=== PATIENT | male | born 1970 | race African-American/Black ===

== ENCOUNTER 2020-09-05 14:34 | Emergency (ER) | payer OTHER, SELFPAY ==
[2020-09-05] VITALS (25 sets, daily range): BP systolic 124–152; BP diastolic 79–102; PULSE 48–73; RESP 9–20; TEMP 36.4; O2SAT 96–100
--- NOTE | 2020-09-05 14:30 | RT.EKG_ITS ---
APPROVED REPORT Exam: Resting ECG Patient Location: E HR:54 bpm ECG Measurements Heart Rate 54 AXIS AR 169 P 66 QRSd 104 QRS 37 QT 410 T 31 QTc 389 Conclusion Sinus bradycardia...rate< 60 no STEMI non-diagnostic EKG I have reviewed and interpreted ECG and agree with software generated interpretation.
--- NOTE | 2020-09-05 15:00 | DI.CT_ITS ---
EXAM: CT BRAIN NECK CTA CLINICAL HISTORY: Dizziness, vision changes. TECHNIQUE: Imaging Protocol: Axial CT angiography was performed with multi-slice acquisition and mu lti-planar and/or 3D reconstructions. CONTRAST MATERIAL: Intravenous: Omnipaque 350 Contrast volume:85 mL COMPARISON: No exams were available for comparison FINDINGS: CT Head W/O and W: Ventricles and Extra axial spaces: Normal in size and morphology for the patient's age. Hemorrhage: None. Cerebral parenchyma: Normal. Midline shift: None. Brainstem/Cerebellum: Normal. Calvarium: Normal. Visualized Paranasal sinuses/Mastoids: Clear. Soft Tissues: There is a 1.5 cm partially fatty lesion in the subcutaneous tissues of the right foreh ead. There is a 0.6 cm nodule within of soft tissue density. Enhancement: Unremarkable. CTA Neck W: Common Carotid: Right: No dissection, occlusion or significant stenosis. Left: No dissection, occlusion or significant stenosis. External Carotid: Right: No occlusion or significant stenosis. Left: No occlusion or significant stenosis. Internal Carotid: Right: No dissection, occlusion or significant stenosis. Left: No dissection, occlusion or significant stenosis. Mild calcific plaque at the origin. Vertebral Artery: Right: No dissection, occlusion or significant stenosis. Left: No dissection, occlusion or significant stenosis. Lung Apices: Normal. Bones: Moderate degenerative changes are seen in the cervical spine. Posterior longitudinal ligament calcification is seen at multiple levels. There is moderate central spinal canal stenosis noted at C4-C5, C6-C7 and C7-T1. Soft Tissues: Right thyroid gland is enlarged and there appears to be mass measuring approximately 3 cm. CTA Brain W: Internal Carotid Arteries: Petrous: Normal. Cavernous: Mild calcific plaque bilaterally. No significant stenosis, occlusion or aneurysm. Cerebral: Normal. Anterior Cerebral Arteries: Right: No aneurysm, occlusion or significant stenosis. Left: No aneurysm, occlusion or significant stenosis. Middle Cerebral Arteries: Right: No aneurysm, occlusion or significant stenosis. Left: No aneurysm, occlusion or significant stenosis. Posterior cerebral Arteries: Right: No aneurysm, occlusion or significant stenosis. The right posterior cerebral artery arises fr om the posterior communicating artery. Left: No aneurysm, occlusion or significant stenosis. The left posterior cerebral artery arises from the posterior communicating artery. Vertebral Arteries: Right: No aneurysm, occlusion or significant stenosis. Left: No aneurysm, occlusion or significant stenosis. Basilar Artery: No aneurysm, occlusion or significant stenosis. IMPRESSION: 1. No evidence of significant stenosis or occlusion on the CT angiography of the head and neck. 2. No acute intracranial process. 3. 1.5 cm fat density lesion in the subcutaneous tissues of the right forehead. There is a soft tiss ue component within it. May represent a lesion such as a lipoma. Liposarcoma cannot be excluded. P lease correlate clinically. 4. There is an enlarged right lobe of the thyroid gland with a question of a 3 cm thyroid mass. None mergent thyroid ultrasound is recommended for further evaluation. RADIATION DOSE DELIVERED: 2,337.71mGy.cm Total DLP 2,337.71mGy.cm Total DLP 2,337.71mGy.cm Total DLP DATA REPOSITORY: All CT scans at this facility are submitted to the National Radiology Data Registry (NRDR) Dose Index Registry (DIR) with the [employer] (ACR). RADIATION OPTIMIZATION: All CT scans at this facility use at least one of these dose optimization te chniques: automated exposure control; mA and/or kV adjustment per patient size (includes targeted exa ms where dose is matched to clinical indication); or iterative reconstruction.
--- NOTE | 2020-09-05 15:09 | ED.GENADUL_ITS ---
Discharge Plan Disposition Patient Disposition: HOME Condition: Good Discharge Details Clinical Impression: Double vision, Headache Primary Care Provider: Unknown,Unknown ED Provider: Isa Coronel Home Meds and New Rx's Prescriptions: Continued multivitamin Tablet 1 tab PO DAILY RF: 0 amlodipine 5 mg Tablet 5 mg PO DAILY RF: 0 Discharge Instructions Instructions: General Headache (ED) Additional Instructions: Please encourage water intake. Please try to prevent eyestrain from your computer. With the visual changes you have experienced, I would like for you top follow-up with [facility] to have your eyes evaluated and discussed upgrading your current prescription. Please also discussed glasses that may help prevent eye fatigue from prolonged time for further computer. With concerned about your sudden onset of headaches, weakness and double vision and feel that evaluation with neurology would be appropriate. Care management will be in contact with you regarding follow-up. I have also asked for evaluation with primary care in the next week. If you develop persistent symptoms, fever, vomiting or other new/worsening symptoms please seek care urgently once again. Medical Decision Making Patient is a pleasant 50-year-old male presenting today with chief complaint of headache and visual changes. He reports that he has had to short, now resolved, episodes of headache and visual changes. He states that his first episode was approximately 2.5 weeks ago. He reports during both episodes he was working on his computer. He describes a sudden onset of headache with diplopia. Describes a vertical diplopia. States that when he closes 1 eye the issue resolves. He states that he has had a history of ocular migraine that typically he gets an aura which she has not had with the. States that the headache lasted 4 to 5 minutes and then quickly self resolved. States he has had some nausea when he has had symptoms but no vomiting. No fevers or chills. No recent travel. Denies any recent change in his corrective lenses. Patient does wear corrective lenses and states it is been several years since he stopped up child. States that he can also get some pain on the posterior right side of his head that feels warm. No pain in his neck. No rash. No shortness of breath. No chest pain. Last episode was at 1 PM today On exam, patient is resting comfortably. I see no evidence to suggest trauma. He is neurologically intact. Normal cardiac and respiratory exam. As the patient diplopia resolves with covering 1 eye, I am concerned for potential central lesion I feel that imaging would be appropriate. I did discuss this plan with the patient is in agreement. Labs reviewed. Patient's white count slightly low at 4.14, CBC otherwise without abnormality. CMP without significant abnormality. Troponin less than 0.05. TSH within normal limits. ANTERIOR CIRCULATION: Right internal carotid artery: Unremarkable. Intracranial segment is patent with no significant stenosis. No aneurysm. Right middle cerebral artery: Unremarkable. No occlusion or significant stenosis. No aneurysm. Right anterior cerebral artery: Unremarkable. No occlusion or significant stenosis. No aneurysm. Left internal carotid artery: Unremarkable. Intracranial segment is patent with no significant stenosis. No aneurysm. Left middle cerebral artery: Unremarkable. No occlusion or significant stenosis. No aneurysm. Left anterior cerebral artery: Unremarkable. No occlusion or significant stenosis. No aneurysm. POSTERIOR CIRCULATION: Right vertebral artery: Unremarkable. No occlusion or significant stenosis. No aneurysm. Left vertebral artery: Unremarkable. No occlusion or significant stenosis. No aneurysm. Basilar artery: Unremarkable. No occlusion or significant stenosis. No aneurysm. Right posterior cerebral artery: origin of the right posterior cerebral artery. Left posterior cerebral artery: origin of the left posterior cerebral artery. Brain: No definite mass, mass effect, or midline shift. Cerebral ventricles: No ventriculomegaly. Bones/joints: Unremarkable. No acute fracture. Soft tissues: Unremarkable. IMPRESSION: No significant stenosis or obstruction of the vessels FINDINGS: Brain: Normal. No hemorrhage. Unremarkable white matter. No mass effect. Cerebral ventricles: No ventriculomegaly. Bones/joints: Unremarkable. No acute fracture. Paranasal sinuses: Visualized sinuses are unremarkable. No fluid levels. Mastoid air cells: Visualized mastoid air cells are well aerated. Soft tissues: Partly fatty lesion in the right forehead subcutaneous soft tissues, possibly a lipoma or liposarcoma. There is a 6 mm nodule within it that appears to be of non-fatty soft tissue consistency. IMPRESSION: Partly fatty lesion in the right forehead subcutaneous soft tissues, possibly a lipoma or liposarcoma. There is a 6 mm nodule within it that appears to be of non-fatty soft tissue consistency. Normal brain. FINDINGS: Right common carotid artery: No stenosis. No dissection or occlusion. Right internal carotid artery: Nonsignificant atherosclerosis in the cavernous right internal carotid artery. Right external carotid artery: No occlusion or stenosis of the origin. Right vertebral artery: No stenosis. No dissection or occlusion. Left common carotid artery: No stenosis. No dissection or occlusion. Left internal carotid artery: Nonsignificant atherosclerosis at the origin of the left internal carotid artery. Nonsignificant atherosclerosis in the cavernous left internal carotid artery. Left external carotid artery: No occlusion or stenosis of the origin. Left vertebral artery: No stenosis. No dissection or occlusion. Thyroid: 3.2 cm thyroid mass suspected involving the isthmus and right thyroid. Correlate with ultrasound. Bones/joints: Degenerative changes in the spine. Soft tissues: Normal. No significant soft tissue swelling. IMPRESSION: 3.2 cm thyroid mass suspected involving the isthmus and right thyroid. Correlate with ultrasound. No significant stenosis or obstruction of the vessels. 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 He and I did discuss his thyroid mass and I advised he will need follow-up with ultrasound. Patient does not have primary care locally, I have asked her care management team to arrange for follow-up and ensure that the incidental finding has the appropriate imaging completed. Patient timing of symptoms, patient did receive a repeat troponin which remained within normal limits. Patient I again discussed his diplopia and sudden onset of headaches. Patient with patient's history, I am wondering if his ocular migraines are changing. I am also concerned that working from home has caused undue stress on his eyes with constant time with screens. I have asked him to follow-up closely with [facility] for eye exam. I also feel that neurologic evaluation would be appropriate. Patient was given strict return precautions. All of his questions and concerns were addressed and he is in agreement this plan. [facility] General Mode of arrival: ambulatory . Date/Time Provider Initiated Documentation: 09/05/20 15:00 . Limitations to Documentation: no limitations . Information obtained by: patient and RN notes reviewed . History of Present Illness 50 year old M presents to the emergency department with the chief complaint of Headache, visual changes, described as severe, Quality is described as stabbing, and is localized to the head. Patient reports no radiation. Patient started experiencing this week(s) and it has been intermittent and now resolved. No relieving factors improve symptom(s), Other factors that worsen symptoms (Has happened twice, both while looking at computer) . Patient notes headaches, loss of appetite and nausea/vomiting (Reports nausea, no vomiting); denies chest pain, cough, diaphoresis, fever/chills, rash, seizure, shortness of breath and weakness. Patient did receive the following treatments prior to arrival, none Related Data Home Medications Medication Instructions Recorded Confirmed amlodipine 5 mg PO DAILY 09/05/20 09/05/20 multivitamin 1 tab PO DAILY 09/05/20 09/05/20 Allergies Allergy/AdvReac Type Severity Reaction Status Date / Time Penicillins Allergy Other (See Unverified 09/05/20 14:44 Comment) General Stated Complaint: Dizzy/Sync TUNG: 3 Review of Systems Constitutional Constitutional: Reports as per HPI, Denies chills, Denies fatigue, Denies fever(s), Denies frequent falls, Reports headache(s), Denies snoring and Denies weakness Eyes Eyes: Reports as per HPI, Denies blurry vision, Reports change in vision (Diplopia both times he is not symptomatic) and Denies photophobia ENT Ears, Nose, Mouth, and Throat: Denies vertigo, Reports headache(s) and Denies neck pain Cardiovascular Cardiovascular: Reports as per HPI, Denies chest pain, Denies lightheadedness, Denies radiating jaw, neck or arm pain, Denies dyspnea and Denies dyspnea on exertion Respiratory Respiratory: Reports as per HPI, Denies chest congestion, Denies cough, Denies dyspnea, Denies dyspnea on exertion, Denies snoring, Denies stridor and Denies wheezing Gastrointestinal Gastrointestinal: Reports as per HPI, Denies abdominal pain, Denies change in bowel habits, Denies nausea and Denies vomiting Genitourinary Genitourinary: Reports system reviewed and no additional complaints, except as documented (denies change in urinary habits) Musculoskeletal Musculoskeletal: Reports as per HPI, Denies back pain, Denies myalgias, Denies muscle cramps, Denies neck pain and Denies numbness Integumentary/Breasts Skin/Breast: Reports as per HPI and Denies rash Neurologic Neurologic: Reports as per HPI, Denies abnormal movements, Denies abnormal speech, Denies behavioral changes, Denies confusion, Denies vertigo, Denies frequent falls, Reports headache(s), Denies localized weakness, Denies numbness, Denies sensory deficit and Denies weakness Psychiatric Psychiatric: Denies behavioral changes and Denies confusion Endocrine Endocrine: Denies fatigue Allergic/Immunologic Allergic/Immunologic: Denies wheezing PFSH Medical History Hypertension Sleep apnea Surgical History History of meniscectomy of left knee History of sleeve gastrectomy Social History Smoking/Tobacco Use Status: Current-Occasional Tobacco Type: cigars Smoking risk assessment performed?: Yes Alcohol Intake: current Alcohol Intake frequency: 0-2 drinks per day Drug use: Socially Substance use type: marijuana Do you feel safe at home: Yes Do you feel safe in your relationship?: Yes Exam Const General: cooperative, healthy appearing, uncomfortable, no acute distress, well developed and well groomed Nutritional Appearance: average body habitus and well nourished Orientation: alert, awake and oriented x3 HENMT Head: normal to inspection, no palpable skull fracture, normocephalic and atraumatic Ears: hearing grossly normal bilaterally, external ears normal and TM's normal bilaterally General nose exam: external nose normal Mouth: oral mucosae normal and moist mucous membranes Throat: posterior oropharynx normal Eyes General: appearance normal, both eyes and all related structures Alignment and Position: alignment normal Periorbital: periorbital findings normal Eyelids: eyelids normal Sclera: sclerae normal Cornea: corneas normal Pupils: PERRL EOM: EOM intact bilaterally Neck Neck: normal visual inspection, full ROM, no lymphadenopathy and no meningeal signs Resp Effort & Inspection: normal respiratory effort, able to speak in complete sentences and no respiratory distress Auscultation: clear to auscultation bilaterally, no rales, no rhonchi and no wheezes Cardio Rate: regular rate Rhythm: regular rhythm Heart Sounds: S1 normal and S2 normal GI Palpation: rigid Back/Spine/Pelvis Cervical Spine: normal cervical lordosis and cervical ROM normal Skin General skin exam: no rashes or lesions noted Neuro General: patient alert, patient awake and patient oriented x3 Cranial Nerves: CN's II-XI intact bilaterally Cognition: normal cognition Speech: speech normal Gait: normal gait Motor: muscle tone normal throughout, strength 5/5 throughout, no pronator drift, no movement abnormalities noted and no fasciculations Sensory Exam: no sensory deficits noted Coordination: [id number] test normal, [id number] test normal, Romberg test normal, Does not sway with eyes open and rapid alternating movement UE normal Extrem General: normal to inspection, capillary refill normal, no pedal edema and no calf tenderness Psych Appearance: grossly normal and well kempt Mental Status: mental status grossly normal Speech and Movement: speech and movement normal Course Vital Signs Vital signs: Vital Signs Pulse 58 L 09/05/20 14:39 Respiratory Rate 13 09/05/20 14:39 Blood Pressure 147/102 H 09/05/20 14:39 Pulse Oximetry 99 09/05/20 14:39 Pulse 58 L 09/05/20 14:39 Respiratory Rate 13 09/05/20 14:39 Respiratory Effort Non-Labored 09/05/20 14:47 Blood Pressure 147/102 H 09/05/20 14:39 Blood Pressure Position Sitting 09/05/20 14:39 Pulse Oximetry 99 09/05/20 14:39 Oxygen Delivery Method Room Air 09/05/20 14:39 Oxygen Flow Rate 0 09/05/20 14:39 Pain Level 0 09/05/20 14:39
[2020-09-05 15:43] LABS: Abs Immature Grans 0.01 10^3/uL (0.0-0.06); Absolute Basophil Count 0.02 10^3/uL (0.0-0.2); Absolute Eosinophil Count 0.04 10^3/uL (0.0-0.7); Absolute Lymphocyte Count 1.33 10^3/uL (1.2-3.4); Absolute Monocyte Count 0.42 10^3/uL (0.1-0.8); Absolute Neutrophil Count 2.32 10^3/uL (1.2-6.7); Basophils % 0.5; HCT 41.5 % (40.0-50.0); HGB 14.1 g/dL (13.5-17.5); Immature Grans % 0.2; Lymphocytes % 32.1; MCH 30.3 pg (27.0-33.0); MCV 89.2 fL (80-95); MPV 9.3 fL (8.0-11.0); Monocytes % 10.1; Neutrophils % 56.1; Nucleated RBC 0 %; Platelet Count 208 10^3/uL (130-400); RBC 4.65 10^6/uL (4.36-5.78); RDW 12.5 % (11.8-14.1); RDW-SD 40.5 fL; WBC 4.14 10^3/uL (4.4-10.8)
[2020-09-05 15:57] LABS: ALT 25 U/L (16-63); AST 21 U/L (15-37); Albumin 3.6 g/dL (3.4-5.0); Alkaline Phosphatase 73 U/L (46-116); Anion Gap 6.6 mmol/L (3-11); BUN 18 mg/dL (7-18); Bilirubin, Total 0.3 mg/dL (0.2-1.0); CO2 30.4 mmol/L (21.0-32.0); CREATININE 0.8 mg/dL (0.70-1.30); Calcium 8.7 mg/dL (8.5-10.1); Chloride 106 mmol/L (98-107); Glucose 109 mg/dL (74-106); Magnesium 2.2 mg/dL (1.8-2.4); Potassium 4.3 mmol/L (3.5-5.1); Sodium 143 mmol/L (136-145); Total Protein 7.5 g/dL (6.4-8.2)
[2020-09-05 15:59] LABS: Troponin I < 0.05 ng/mL (<0.06)
[2020-09-05] MEDS: Omnipaque 350 MG/ML 100 ML BTL IJ (17:07)
[2020-09-05] MEDS: Normal Saline - Diluent 50 ML VIAL IV (17:08)
[2020-09-05 17:26] LABS: TSH (W/Ref FT4) 1.06 uIU/mL (0.36-3.74)
--- NOTE | 2020-09-05 17:32 | DI.VRAD_ITS ---
PROCEDURE INFORMATION: Exam: CT Angiography Head With Contrast Exam date and time: 09/05/2020 4:47 PM Age: 50 years old Clinical indication: Dizziness and giddiness and visual disturbance; Patient HX: Dizziness, vision changes TECHNIQUE: Imaging protocol: Computed tomography angiography of the head with intravenous contrast. 3D rendering (Not supervised by radiologist): MIP and/or 3D reconstructed images were created by the technologist. COMPARISON: No relevant prior studies available. FINDINGS: ANTERIOR CIRCULATION: Right internal carotid artery: Unremarkable. Intracranial segment is patent with no significant stenosis. No aneurysm. Right middle cerebral artery: Unremarkable. No occlusion or significant stenosis. No aneurysm. Right anterior cerebral artery: Unremarkable. No occlusion or significant stenosis. No aneurysm. Left internal carotid artery: Unremarkable. Intracranial segment is patent with no significant stenosis. No aneurysm. Left middle cerebral artery: Unremarkable. No occlusion or significant stenosis. No aneurysm. Left anterior cerebral artery: Unremarkable. No occlusion or significant stenosis. No aneurysm. POSTERIOR CIRCULATION: Right vertebral artery: Unremarkable. No occlusion or significant stenosis. No aneurysm. Left vertebral artery: Unremarkable. No occlusion or significant stenosis. No aneurysm. Basilar artery: Unremarkable. No occlusion or significant stenosis. No aneurysm. Right posterior cerebral artery: origin of the right posterior cerebral artery. Left posterior cerebral artery: origin of the left posterior cerebral artery. Brain: No definite mass, mass effect, or midline shift. Cerebral ventricles: No ventriculomegaly. Bones/joints: Unremarkable. No acute fracture. Soft tissues: Unremarkable. IMPRESSION: No significant stenosis or obstruction of the vessels. PROCEDURE INFORMATION: Exam: CT Head Without Contrast Exam date and time: 09/05/2020 4:47 PM Age: 50 years old Clinical indication: Dizziness and giddiness and visual disturbance; Patient HX: Dizziness, vision changes TECHNIQUE: Imaging protocol: Computed tomography of the head without contrast. COMPARISON: No relevant prior studies available. FINDINGS: Brain: Normal. No hemorrhage. Unremarkable white matter. No mass effect. Cerebral ventricles: No ventriculomegaly. Bones/joints: Unremarkable. No acute fracture. Paranasal sinuses: Visualized sinuses are unremarkable. No fluid levels. Mastoid air cells: Visualized mastoid air cells are well aerated. Soft tissues: Partly fatty lesion in the right forehead subcutaneous soft tissues, possibly a lipoma or liposarcoma. There is a 6 mm nodule within it that appears to be of non-fatty soft tissue consistency. IMPRESSION: Partly fatty lesion in the right forehead subcutaneous soft tissues, possibly a lipoma or liposarcoma. There is a 6 mm nodule within it that appears to be of non-fatty soft tissue consistency. Normal brain. PROCEDURE INFORMATION: Exam: CT Angiography Neck With Contrast Exam date and time: 09/05/2020 4:47 PM Age: 50 years old Clinical indication: Dizziness and giddiness and visual disturbance; Patient HX: Dizziness, vision changes TECHNIQUE: Imaging protocol: Computed tomography angiography of the neck with intravenous contrast. 3D rendering (Not supervised by radiologist): MIP and/or 3D reconstructed images were created by the technologist. COMPARISON: No relevant prior studies available. FINDINGS: Right common carotid artery: No stenosis. No dissection or occlusion. Right internal carotid artery: Nonsignificant atherosclerosis in the cavernous right internal carotid artery. Right external carotid artery: No occlusion or stenosis of the origin. Right vertebral artery: No stenosis. No dissection or occlusion. Left common carotid artery: No stenosis. No dissection or occlusion. Left internal carotid artery: Nonsignificant atherosclerosis at the origin of the left internal carotid artery. Nonsignificant atherosclerosis in the cavernous left internal carotid artery. Left external carotid artery: No occlusion or stenosis of the origin. Left vertebral artery: No stenosis. No dissection or occlusion. Thyroid: 3.2 cm thyroid mass suspected involving the isthmus and right thyroid. Correlate with ultrasound. Bones/joints: Degenerative changes in the spine. Soft tissues: Normal. No significant soft tissue swelling. IMPRESSION: 3.2 cm thyroid mass suspected involving the isthmus and right thyroid. Correlate with ultrasound. No significant stenosis or obstruction of the vessels. REFERENCES: NASCET CRITERIA. The degree of internal carotid artery stenosis is based on NASCET criteria. Normal is no stenosis. Mild is less than 50% stenosis. Moderate is 50-69% stenosis. Severe is 70% to 99% stenosis. Total occlusion is no detectable patent lumen. Dictated and Authenticated by: Triston Hyde MD. Ordering:REGGIE Martines MD
[2020-09-05 19:11] LABS: Troponin I < 0.05 ng/mL (<0.06)
--- NOTE | 2020-09-08 16:27 | PDOC.ERCMACT ---
- If Service Date Differs Date of service: 09/08/20 Time of Service: 16:27 Care Management Activity Note Devin is seen in the ED on 09/05/2020 for double vision and a headache. CM telephones Devin to inquire whether he has a primary care physician, as his PCP is currently listed as unknown. There is no answer, so CM leaves a message asking for a return phone call. Will wait to speak with Devin before proceeding with a PCP referral.
== END 2020-09-05 19:39 | disposition home or self-care (01) ==
PROVIDERS: Registered Nurse Emergency; Emergency Provider Physician Assistant
DX: H53.2 Diplopia (principal); R51.9 Headache, unspecified; R42 Dizziness and giddiness; R11.0 Nausea
CPT/HCPCS: 36415; 70496; 70498; 80053; 93005; 99285; 83735; 84443; 84484; 85025; 93010; J3490

== ENCOUNTER 2020-09-22 02:29 | Outpatient (CLI) | payer OTHER, SELFPAY ==
--- NOTE | 2020-09-22 06:30 | DI.US_ITS ---
EXAM: US THYROID CLINICAL HISTORY: THYROID MASS, GOITER, E04.9. TECHNIQUE: Ultrasound thyroid performed using standard protocol. COMPARISON: No exams were available for comparison FINDINGS: Right thyroid lobe measures 2.7 centimeters AP x 2 centimeters wide by 6.6 centimeters craniocaudal. The right lobe contains multiple findings. The largest nodule in the right lobe is in the lower pole region and measures 2.7 x 2.1 x 1.8 cm. It exhibits smooth margins and is mixed solid-cystic without echogenic foci therein. It is relatively is oechoic to the gland. It appears taller than wider. Total points =5 TR 4 At the junction of the right lobe and isthmus there is a 1.5 x 1.2 x 1.5 cm nodule which exhibits smo oth margins, exhibits mixed cystic and solid components and no echogenic foci therein and wider than taller. Total points =2 Towards the superior aspect of the right lobe there is a 0.7 x 0.3 x 0.8 cm mixed solid-cystic nodule with smooth margins and no echogenic foci therein and relatively isoechoic. Total points =2 At the midpole level of the right lobe there is a 0.7 x 0.7 x 0.9 cm cyst Total points =0 The isthmus is thickened, measuring 10 millimeter. The isthmus contains a nodule measuring 1.9 x 0.5 x 0.8 cm which exhibits smooth borders, taller than wider, mixed solid cystic and no echogenic foci therein. Total points =2 The left thyroid lobe measures 2.4 by 2.0 x 5.5 cm sys craniocaudal. It contains 3 findings. At the midpole level there is a cyst measuring 1.1 x 0.5 x 0.8 cm Another cyst measuring 0.6 x 0.5 x 0.7 cm is seen in the inferior aspect In addition, there is a 3rd finding which measures 0.6 x 0.6 x 0.5 cm which exhibits mix solid cystic composition, relatively isoechoic smooth borders and no echogenic foci but does appear slightly tall er than wider. Total points =5 TR 4 IMPRESSION: Both thyroid lobes are slightly enlarged and contain multiple findings. There are 2 findings which require follow-up by 1 in each lobe, as described above, given that they r egister moderately suspicious/TR4 The largest nodule in the right lobe measures 2.7 x 2.1 x 1.8 cm, is moderately suspicious, and given that it is larger than 1.5 cm should undergo ultrasound guided FNA. DATA REPOSITORY:
--- NOTE | 2020-09-22 06:30 | DI.MRI_ITS ---
EXAM: MR BRAIN WO CLINICAL HISTORY: double vision transient,h53.2,dipolpia TECHNIQUE: Multiplanar multisequence MRI of the brain was performed. COMPARISON: No exams were available for comparison FINDINGS: There is a subcutaneous cystic structure over the lateral right supraorbital region measuring 1.5 by 0.7 by 1.3 cm. Probably a sebaceous cyst. There are no other significant scalp findings. There is some mucosal thickening in the right maxillary sinus not associated with fluid level. Left maxillary sinus is clear as are the sphenoid sinuses and frontal sinuses. CEREBRAL PARENCHYMA: No evidence of intracranial hemorrhage, mass effect nor shift of midline structu re. No extraaxial fluid collections. Ventricles are not enlarged nor shifted. There is no significant focal signal abnormality in the cerebellar hemispheres nor within the elias, m idbrain, and thalami. There is no abnormal signal abnormality in the periventricular white matter. PITUITARY GLAND: No mass nor parasellar abnormality. No obvious abnormality in the cavernous sinuses. FLOW VOIDS: The expected flow void are noted. No evidence of obvious aneurysm nor obvious vascular ma lformation. PARANASAL SINUSES: As above ORBITS: No obvious abnormal findings. IMPRESSION: 1. No significant intracranial findings on this MRI scan of the brain. 2. There is a well-defined subcutaneous cystic structure over the right superolateral orbital region measuring 15 x 7 x 13 millimeters. This is probably a sebaceous-type cyst at this level. DATA REPOSITORY:
== END 2020-09-22 02:30 ==
LOC: DI 02:29
PROVIDERS: PCP Emergency Medicine; Visit Provider Emergency Medicine
DX: E04.8 Other specified nontoxic goiter (principal); H53.2 Diplopia
CPT/HCPCS: 70551; 76536

== ENCOUNTER 2021-04-14 01:17 | Outpatient (CLI) | payer OTHER, SELFPAY ==
[2021-04-14 12:37] LABS: Hemoglobin A1C 5.4 % (<5.7)
[2021-04-14 12:41] LABS: Anion Gap 6.8 mmol/L (3-11); BUN 23 mg/dL (7-18); CO2 31.2 mmol/L (21.0-32.0); CREATININE 0.9 mg/dL (0.70-1.30); Calcium 9.1 mg/dL (8.5-10.1); Chloride 107 mmol/L (98-107); Glucose 95 mg/dL (74-106); Potassium 4.1 mmol/L (3.5-5.1); Sodium 145 mmol/L (136-145)
[2021-04-14 22:38] LABS: PSA, Screening 0.7 ng/mL (0.0-3.5)
== END 2021-04-14 01:18 | disposition home or self-care (01) ==
LOC: LOS 01:17
PROVIDERS: PCP Emergency Medicine; Visit Provider Emergency Medicine
DX: I10 Essential (primary) hypertension (principal); Z12.5 Encounter for screening for malignant neoplasm of prostate
CPT/HCPCS: 36415; 80048; 84153; 83036

== ENCOUNTER 2021-08-10 16:18 | Outpatient (REF) | payer BC, SELFPAY ==
--- NOTE | 2021-08-10 15:30 | SKI_PTH ---
PATIENT: Devin Henning LOC: [facility] U#:[id number] AGE/SX: 51/M ROOM: RE08/10/[address]: Milton Mccall DO : 1970 BED: DIS: 08/10/2021 SPEC #: [id number] RECD: 08/10/21 18:15 STATUS: BRENDAN MOFFETT #: [id number] ESAU: 08/10/21 15:[address]: Milton Mccall DEPT: Surgical Specimen RECD BY: Rosanne Purcell Tissues: 1 - SKIN BIOPSY(SHAVE/PUNCH) Procedures: SKIN LEVEL 4 Comments: [id number]
== END 2021-08-10 16:19 | disposition home or self-care (01) ==
LOC: LBN 16:18
PROVIDERS: PCP Emergency Medicine; Visit Provider Emergency Medicine
DX: I78.1 Nevus, non-neoplastic (principal)
CPT/HCPCS: 88305

== ENCOUNTER 2021-09-22 03:39 | Outpatient (CLI) | payer BC, SELFPAY ==
[2021-09-23 12:18] LABS: COVID-19 RT-PCR UVMMC Result Negative (Negative)
== END 2021-09-22 03:40 | disposition home or self-care (01) ==
LOC: LBO 03:41
PROVIDERS: PCP Family Medicine; Visit Provider Surgery
DX: Z20.822 Contact with and (suspected) exposure to COVID-19 (principal)
CPT/HCPCS: 87635; U0003

== ENCOUNTER 2021-09-25 10:12 | Day surgery (SDC) | payer BC, SELFPAY ==
--- NOTE | 2021-09-25 07:08 | W.PM.ENDDOP ---
Date of service: 09/25/21 Time of Service: 12:02 Endoscopy Report DATE OF PROCEDURE: 09/25/21 PRE-OP DIAGNOSIS: GERD and Colon Cancer Screening POST-OP DIAGNOSIS: other (duodenitis, duodenal polyp, gastritis, esophagitis, polyps) PROCEDURE: 1. EGD with biopsies 2. Colonoscopy with polypectomy SURGEON: Raquel Peña ANESTHESIA TYPE: General:No Airway PATHOLOGY: other (duodenal bx, duodenal polyp, gastric bx, GE junction bx, cecal polyps x2, ascending polyp, transverse polyp and sigmoid polyp) COMPLICATIONS: None DISPOSITION: same day INDICATIONS: Pt seen at the request of PCP regarding colon cancer screening. Pt has never had a colon cancer screening before.? Denies problems with constipation, diarrhea.? No pain or difficulty with bowel movements.? Denies rectal bleeding.? There is no family history of any colon cancer.? Pt has not had any weight loss.? Their appetite is good.? No heart, lung, or kidney problems. No heartburn or indigestion. No prior colo-rectal surgery.? No prior prostate surgery..? No problems with anesthesia in the past. VSG. ? Done in [facility], in 2016. ? We don't have any records and pt does not have access either.? Pt was advised by his surgeon to have an EGD when he has his CE.? He is unclear as to why this is.? He doens't know if he has Guido's.? His weight has plateuaed.? He has no pain or difficulty swallowing.? His H/I s/s are well controlled as long as he follows lifestyle modifications.? PREP: Miralax/Dulcolax PROCEDURE START TIME: 12:02 PROCEDURE END TIME: 12:45 FINDINGS: inflammation of the duodenum, stomach and esophagus Duodenal polyp Multiple polyps in the colon Sigmoid polyp >10 mm in size PROCEDURE DESCRIPTION: After informed consent was obtained the patient was take to the procedure room and placed in a supine position. Monitors were applied and a time out was done. The patients name, date of , procedure type, allergies to medications and metal in their body was reviewed. A bite block was placed and the patient was sedated. Once sedated and comfortable the gastroscope was advanced through the oropharynx which was grossly normal into the esophagus. The proximal and mid-esophagus were normal. In the distal esophagus there was mild inflammation noted. The scope was advanced into the stomach and through the pylorus into the 3rd portion of the duodenum. The duodenum was noted to be inflammed. Biopsies were done. There was a duodenal polyp noted in the 1st portion of the duodenum just distal to the pylorus. The scope was retracted back into the stomach. There was mild inflammation noted in the antrum and body. Biopsies were done to rule out H. pylori. There were no ulcers. The scope was retro-flexed. The cardia and fundus were noted to be normal. There was no hiatal hernia noted. The scope was retracted back into the esophagus and biopsies were done of the GE junction to rule out Guido's. The Z line was regular. The GE junction was at 34 cm. While the patient was still sedated they were placed in a left decubitous position. A rectal exam was done. External exam was normal. Internal exam revealed a normal sphincter tone and no palpable masses. The prostate felt smooth. The scope was then introduced and retro-flexed. No internal hemorrhoids, masses or polyps were identified on retroflexion. The scope was then advanced to the cecum without difficulty. The ileocecal valve and appendiceal orifice were identified. The prep was adequate. The scope was then slowly retracted over 27 minutes back into the rectum. Polyps were removed with a hot snare in the cecum x2 and in the sigmoid colon x1. Polyps were removed with cold forceps in the ascending colon and Transverse colon. There was no diverticulosis noted. The scope was removed and the patient was woken up and taken back to Same day surgery in stable condition. The patient tolerated the procedure well and there were no immediate complications. Follow up: Depending on final pathology
--- NOTE | 2021-09-25 07:09 | PDOC.DSDIS_ITS ---
Discharge Plan Disposition Patient Disposition: HOME Condition: Stable Discharge Details Reason For Visit: [place]/EGD Attending Provider: Raquel Peña Primary Care Provider: Juana Rich Home Meds and New Rx's Prescriptions: New omeprazole 40 mg capsule,delayed release(DR/EC) 40 mg PO DAILY Qty: 30 3RF Continued colchicine [Mitigare] 0.6 mg capsule 0.6 mg PO BID Qty: 30 6RF amlodipine 5 mg tablet 5 mg PO DAILY Qty: 90 1RF multivitamin Tablet 1 tab PO DAILY 0RF Discontinued polyethylene glycol 3350 17 gram/dose powder 238 g PO ONCE Qty: 238 0RF Rx Instructions: take per colonoscopy instructions bisacodyl [Dulcolax (bisacodyl)] 5 mg tablet,delayed release (DR/EC) 5 mg PO ONCE Qty: 4 0RF Rx Instructions: take per colonoscopy instructions Discharge Instructions Instructions: Diet for Stomach Ulcers and Gastritis (ED), Duodenitis (DC), Gastritis (DC), Esophagitis (DC), Colorectal Polyps (DC) Additional Instructions: Findings: Inflammation of the small bowel (duodenum), stomach and esophagus Multiple polyps Follow up: will depend on final pathology results Please call if you develop: fevers >101.5 Nausea or Vomiting Abdominal pain that is not transient Rectal bleeding that is more then a tbsp A hard abdomen and inability to pass gas DAY SURGERY UNIT POST ENDOSCOPY INSTRUCTIONS Instructions for everyone who is given Anesthesia: For your safety, please do the following for the next 24 Hours: a. Do not drive or operate dangerous equipment b. Do not drink alcohol beverages or use any recreational drugs for the first 24 hours or while taking pain medications. The medications in your body may have a reaction that can be dangerous. c. Do not make any important decisions or sign any important papers 1. Generally there are no restrictions on your activity after a day or so has gone by, but you may feel a bit fatigued for a few days. 2. After you arrive home you may have a light meal and return to a normal diet as you can tolerate it without feeling sick to your stomach. 3. After surgery, you may feel pain or discomfort. This should be only transient, but if it persists please contact your doctor. 4. If there are any questions regarding the findings of your procedure, please feel free to contact your doctor. 6. If you are unable to contact your doctor with a problem, contact the hospital at [phone]. 7. Continue all your regular medications unless directed otherwise. I understand the above instructions and have no questions. Signature of Patient or Responsible Adult Escort Date/Time Name of Responsible Adult Escort Signature of Nurse Date/Time Activity:: Activity as Tolerated Diet:: low acid Discharge Orders Discharge Orders: Discharge Order (Routine); Ordered 09/25/21 Ordered By: Raquel Peña
[2021-09-25 10:15] VITALS: BP 146/85; PULSE 56; RESP 18; TEMP 36.8; O2SAT 99
[2021-09-25] MEDS: Lactated Ringers 1,000 ML 80 ML IV (10:31)
--- NOTE | 2021-09-25 11:08 | W.ANESPRE ---
General Info Date of Service Date Performed: 09/25/21 Height: 5 ft 11 in Weight: 106.2 kg Body Mass Index (BMI): 32.6 Surgical Procedure: Operation Date: 09/25/21 11:20 Proposed Procedure Side Surgeon p Colonoscopy/Gastroscopy Raquel Peña MD Meds Allergies and Home Medications Allergies Allergy/AdvReac Type Severity Reaction Status Date / Time Penicillins Allergy Other (See Unverified 09/25/21 10:19 Comment) Home Medication Medication Instructions Recorded multivitamin 1 tab PO DAILY 09/05/20 colchicine 0.6 mg capsule 0.6 mg PO BID #30 cap 01/10/21 (Mitigare) amlodipine 5 mg tablet 5 mg PO DAILY #90 tab 08/21/21 bisacodyl 5 mg tablet,delayed 5 mg PO ONCE #4 tab 09/21/21 release (Dulcolax (bisacodyl)) polyethylene glycol 3350 17 238 g PO ONCE #238 g 09/21/21 gram/dose oral powder Current Visit Medications: Current Medications Generic Name Dose Route Start Last Admin Trade Name Freq PRN Reason Stop Dose Admin Hyoscyamine Sulfate 0.125 mg 09/25/21 07:10 Hyoscyamine 0.125 Mg Sl/Oral/Chew SL DIRECTED PRN Ringer's Solution 1,000 mls @ 80 mls/hr 09/25/21 06:00 09/25/21 10:31 IV 10/22/21 23:59 80 mls/hr INFUSION YASMIN Administration IV Miscellaneous Supplies 1 each 09/25/21 06:00 Iv Access IV 10/22/21 23:59 DIRECTED YASMIN Ondansetron HCl 4 mg 09/25/21 07:10 Ondansetron 4 Mg/2 Ml Vial IVP Q4H PRN PRN Nausea / Vomiting Sodium Chloride 0 ml 09/25/21 06:00 Normal Saline Flush 10 Ml Syr IV 10/22/21 23:59 PRN PRN Sodium Chloride 0 ml 09/25/21 06:00 Normal Saline 10 Ml Vial IJ 10/22/21 23:59 DIRECTED PRN Sterile Water 0 ml 09/25/21 06:00 Water,Injection,Sterile 10 Ml Vial IJ 10/22/21 23:59 DIRECTED PRN PFSH Active Problems Active Problems: Problem Status Onset Code GERD (gastroesophageal reflux disease) K21.9 Hypertension I10 Hyperlipidemia E78.5 Gastric bypass status for obesity ~2012 Z98.84 Diabetes type 2, controlled E11.9 Ocular migraine G43.109 Thyroid nodule greater than or equal to 1 cm in diameter incidentally noted on imaging study E04.1 Migraine headache with aura G43.109 Gout M10.9 Right shoulder pain M25.511 History of gastrectomy Z90.3 Multinodular goiter E04.2 COVID-19 U07.1 Medical History Medical History (Updated 09/25/21 @ 11:12 by Alex Abraham CRNA) COVID-19 02/2021-PND, fever, loss of sense and smell and taste History of rheumatic fever as a child Hypertension Sleep apnea Surgical History Surgical History History of ankle surgery (~1987) Left ankle reconstruction History of arthroscopy left History of meniscectomy of left knee (~05/09/20) Left knee; Dr. Angelo Garrison History of sleeve gastrectomy (~11/13/15) S/P eye surgery Par strabismus surgery S/P UPPP (uvulopalatopharyngoplasty) (~2005) For sleep apnea Tobacco Smoking/Tobacco Use Status: Never Alcohol Alcohol Intake: current Alcohol intake frequency: 0-2 drinks per day Substance Use Substance use: Socially Substance use type: marijuana Vital Signs and Lab Results Vital Signs Most Recent Vital Signs in EMR: Most Recent Vital Signs Temp Pulse Resp BP Pulse Ox 36.8 C 56 L 18 146/85 H 99 09/25/21 10:15 09/25/21 10:15 09/25/21 10:15 09/25/21 10:15 09/25/21 10:15 Lab Results Blood Type / Crossmatch: No Data to Display Complete Blood Count: No Data to Display Complete Metabolic Panel: No Data to Display Liver Function Panel: No Data to Display Coagulation Panel: No Data to Display Cardiac Panel: No Data to Display Arterial Blood Gas: No Data to Display Venous Blood Gas: No Data to Display Pancreas Panel: No Data to Display Thyroid Panel: No Data to Display Infectious Disease: Coronavirus (COVID-19)(PCR) Negative (Negative) 09/22/21 08:27 09/22/21 Blood Cultures: No Data to Display Toxicology Panel: No Data to Display Imaging and Studies Imaging and Studies Study information below may be from another EMR and interpreted by another provider. Please see original notes in EMR for more complete details. EKG Summary: DATE/TIME OF SERVICE: 09/05/20 1445 : 1970PERFORMING LOCATION: ER APPROVED REPORT Exam: Resting ECG Patient Location: E HR:54 bpm ECG Measurements Heart Rate 54 AXIS MT 169 P 66 QRSd 104 QRS 37 QT 410 T31 QTc 389 Conclusion Sinus bradycardia...rate< 60 no STEMI non-diagnostic EKG Anesthesia Assessment and Plan Anesthesia History Personal History: No History of Anesthesia Complications Family History: No Family History of Anesthesia Complications Exercise Tolerance Exercise Tolerance: Metabolic Equivalents>4 Pertinent Negatives Pertinent Negatives: No Symptoms of GERD Cardiac & Pulmonary Exam Cardiac Exam: Normal S1/S2 Heart Sounds Pulmonary Exam: Clear Bilateral Breath Sounds Implantable Cardiac Device Does patient have a Pacemaker or an ICD?: No Airway Exam Known Difficult Airway: No Mallampati Class: 2 Mouth Opening: Normal (> 3cm) Thyromental Distance: Greater than 3 cm Facial Hair: Full Oneil Neck Range of Motion: Full ROM Neck Circumference: Normal Teeth Condition: Normal Dentition ASA Classification ASA Score: ASA 2 Emergency Case?: No NPO Status NPO Status: NPO Clears >2 hours, Solids >8 hours Anesthesia Plan Resuscitation Status: Full Code Anesthesia Technique: General Anesthesia Airway Planned: Natural Airway Monitors Used: Standard Monitors
[2021-09-25 11:13] VITALS: BMI 32.6
--- NOTE | 2021-09-25 12:04 | BOWEL_PTH ---
PATIENT: Devin Henning LOC: [facility] U#:[id number] AGE/SX: 51/M ROOM: RE09/25/[address]: Raquel Peña MD : 1970 BED: DIS: 09/25/2021 SPEC #: [id number] RECD: 09/25/21 17:02 STATUS: BRENDAN RE #: [id number] ESAU: 09/25/21 12:[address]: Raquel Peña DEPT: Surgical Specimen RECD BY: Rosanne Purcell ENTERED: 09/25/21 17:12 SP TYPE: Bowel OTHR DR: Juana Rich Tissues: 1 - BIOPSY BOWEL 2 - BIOPSY BOWEL 3 - STOMACH BIOPSY 4 - ESOPHAGUS BIOPSY 5 - BIOPSY BOWEL 6 - BIOPSY BOWEL 7 - BIOPSY BOWEL 8 - BIOPSY BOWEL Procedures: GROSS AND MICRO LEVEL 4 Comments: [id number]
[2021-09-25 12:55] VITALS: BP 126/74; PULSE 64; RESP 16; TEMP 36.5; O2SAT 98
--- NOTE | 2021-09-25 13:22 | W.ANESPOSTOP ---
Postoperative Evaluation Date, Time and Location Date Performed: 09/25/21 Time Performed: 12:55 Patient Location: Day Surgery Unit Vital Signs Most Recent Imported Vital Signs: Most Recent Vital Signs Temp Pulse Resp BP Pulse Ox 36.5 C 64 16 126/74 98 09/25/21 12:55 09/25/21 12:55 09/25/21 12:55 09/25/21 12:55 09/25/21 12:55 Pain Score Most Recent Pain Score: Most Recent Pain Score Pain Level 0 09/25/21 12:55 Assessment Mental Status: Awake (Alert & Oriented to Patient Baseline) Airway and Respiratory Function: Patent airway with normal (patient baseline) respiratory exam Cardiovascular Function: Hemodynamically Stable Hydration Status: Adequately Hydrated Nausea & Vomiting: No Nausea or Vomiting Pain: Pt. Denies Any Pain Peripheral Nerve Block: Patient did not receive a nerve block
[2021-09-25 13:25] VITALS: BP 119/81; PULSE 64; RESP 18; TEMP 36.4; O2SAT 100
== END 2021-09-25 14:00 | disposition home or self-care (01) ==
PROVIDERS: PCP Family Medicine; Visit Provider Surgery
PROC: (CPT 45385; principal; 2021-09-25 11:15)
DX: Z12.11 Encounter for screening for malignant neoplasm of colon (principal); K21.9 Gastro-esophageal reflux disease without esophagitis; K63.5 Polyp of colon; K31.7 Polyp of stomach and duodenum; K29.70 Gastritis, unspecified, without bleeding; K29.80 Duodenitis without bleeding; K20.90 Esophagitis, unspecified without bleeding; K31.9 Disease of stomach and duodenum, unspecified; K31.A0 Gastric intestinal metaplasia, unspecified
CPT/HCPCS: 45385; 45380; 43239; 88305; J2001

== ENCOUNTER → 2022-03-09 00:43 | Outpatient (CLI) | payer BC, SELFPAY ==
--- NOTE | 2022-03-09 07:00 | DI.RAD_ITS ---
Exam(s) XR ANKLE LT COMPLETE EXAM: XR ANKLE LT COMPLETE CLINICAL HISTORY: left ankle pain,M25.572 TECHNIQUE: 2D digital imaging was performed. Three views. COMPARISON: No exams were available for comparison FINDINGS: BONES: No acute fracture is present. No bony destructive lesion is seen. Enthesophyte at Achilles ins ertion. JOINTS:The ankle mortise is normally aligned. Spurring is noted at the medial malleolus and adjacen t talus as well as at the fibular talar joint, talonavicular joint and posterior talocalcaneal joint. SOFT TISSUE: Mild swelling. IMPRESSION: Degenerative changes. DATA REPOSITORY: RADIATION DOSE DELIVERED:
== END ==
PROVIDERS: PCP Family Medicine; Visit Provider Family Medicine
DX: M19.072 Primary osteoarthritis, left ankle and foot
CPT/HCPCS: 73610